=== PATIENT | male | born 1985 | race Caucasian/White ===

== ENCOUNTER 2019-05-21 21:38 | Emergency (ER) | payer OTHER ==
[~2019-05-21] VITALS: Ht 175.3 cm; Wt 122.5 kg
[2019-05-21 21:43] VITALS: BP 150/85
== END 2019-05-22 00:15 | disposition home or self-care (01) ==
LOC: ED 21:38
DX: M72.2 Plantar fascial fibromatosis (principal)
CPT/HCPCS: Q0092